=== PATIENT | male | born 1940 | race Caucasian/White ===

== ENCOUNTER 2022-12-23 13:29 | Emergency (ER) | payer OTHER ==
[2022-12-23 14:05] LABS: BASOPHILS PERCENT AUTO 0.4 % (0.0-1.0); EOSINOPHILS PERCENT AUTO 1.6 % (1.0-3.0); HEMATOCRIT 37.1 % (40.0-54.0); HEMOGLOBIN 12.2 g/dL (14.0-18.0); LYMPHOCYTES PERCENT AUTO 21.4 % (20.5-50.1); MEAN CORPUSCULAR HEMOGLOBIN 27.2 pg (27.0-34.0); MEAN CORPUSCULAR HGB CONC 32.9 g/dL (33.0-35.0); MEAN CORPUSCULAR VOLUME 82.8 fL (80-100); NEUTROPHILS PERCENT AUTO 66.6 % (42.2-75.2); PLATELET COUNT,PLT 292 10^3/uL (150-450); RED BLOOD CELL COUNT 4.48 10^6/uL (4.6-6.2); WHITE BLOOD CELL COUNT,WBC 7.9 10^3/uL (5.0-10.0)
[2022-12-23 14:24] LABS: ALBUMIN 2.8 g/dL (3.4-5.0); ANION GAP 11.5 mEq/L (7-13); BILIRUBIN TOTAL 0.4 mg/dL (0.2-1.0); BUN/CREATININE RATIO 13.5 (No establ ref range); CALCIUM 8.2 mg/dL (8.5-10.1); CREATININE 1.48 mg/dL (0.70-1.30); EST CRCL DRUG DOSING (CG) 43.69 mL/min; MAGNESIUM 2.2 mg/dL (1.8-2.4); POTASSIUM,K 4.5 mmol/L (3.5-5.1); PROTEIN TOTAL,TP 6.3 g/dL (6.4-8.2)
[2022-12-23 14:25] LABS: A/G RATIO 0.8
[2022-12-23] MEDS ORDERED: Sodium Chloride 0.9% 1,000 ML IV ONE (15:27)
[2022-12-23] MEDS ORDERED: Sodium Chloride 0.9% 10 ML Syringe FLUSH PRN (15:27)
== END 2022-12-23 17:05 ==
LOC: DL.ED 13:29
DX: S02.642A Fracture of ramus of left mandible, initial encounter for closed fracture (principal); S02.31XA Fracture of orbital floor, right side, initial encounter for closed fracture; S60.512A Abrasion of left hand, initial encounter; E86.0 Dehydration; B02.29 Other postherpetic nervous system involvement; I95.1 Orthostatic hypotension; T42.6X5A Adverse effect of other antiepileptic and sedative-hypnotic drugs, initial encounter; W06.XXXA Fall from bed, initial encounter
CPT/HCPCS: 36415; 70450; 70486; 72125; 80053; 83735; 85025; 93005; 93010; 96360; 99285; 99285-25; J7030

== ENCOUNTER 2024-12-11 13:52 | Emergency (ER) | payer OTHER ==
[2024-12-11] MEDS ORDERED: Sodium Chloride 0.9% 10 ML Syringe FLUSH PRN (13:58)
[2024-12-11 14:17] LABS: BASOPHILS PERCENT AUTO 0.3 % (0.0-1.0); EOSINOPHILS PERCENT AUTO 0.3 % (1.0-3.0); HEMOGLOBIN 12.8 g/dL (14.0-18.0); LYMPHOCYTES PERCENT AUTO 14.4 % (20.5-50.1); MEAN CORPUSCULAR HEMOGLOBIN 28.3 pg (27.0-34.0); MEAN CORPUSCULAR HGB CONC 32.8 g/dL (33.0-35.0); MEAN CORPUSCULAR VOLUME 86.1 fL (80-100); MONOCYTES PERCENT AUTO 10.7 % (2-8); NEUTROPHILS PERCENT AUTO 74.3 % (42.2-75.2); PLATELET COUNT,PLT 252 10^3/uL (150-450); RED BLOOD CELL COUNT 4.53 10^6/uL (4.6-6.2)
[2024-12-11] MEDS: Metoprolol Tartrate 5 MG/5 ML SDV IVPUSH ONE (14:26)
[2024-12-11] MEDS: Sodium Chloride 0.9% 1,000 ML IV ONE (14:35)
[2024-12-11 14:38] LABS: A/G RATIO 0.74; ALBUMIN 3.2 g/dL (3.4-5.0); ANION GAP 17.6 mEq/L (7-13); BILIRUBIN TOTAL 1.2 mg/dL (0.2-1.0); BUN/CREATININE RATIO 10.5 (No establ ref range); C-REACTIVE PROTEIN 18.39 ng/dL (<=0.50); CREATININE 1.24 mg/dL (0.70-1.30); EST CRCL DRUG DOSING (CG) 50.41 mL/min; POTASSIUM,K 3.6 mmol/L (3.5-5.1); PROTEIN TOTAL,TP 7.5 g/dL (6.4-8.2)
[2024-12-11 14:39] LABS: LACTIC ACID 2.6 mmol/L (0.4-2.0)
[2024-12-11] MEDS: Iopamidol 755 Mg/ML 100 ML Bottle IVPUSH ONE (14:59)
[2024-12-11] MEDS: cefTRIAXone 2 GM Vial IVPUSH ONE (16:00)
== END 2024-12-11 16:18 | disposition home or self-care (01) ==
LOC: DL.ED 13:52
DX: J18.9 Pneumonia, unspecified organism (principal); I10 Essential (primary) hypertension
CPT/HCPCS: 71045; 71275; 80053; 83605; 83735; 83880; 84484; 85025; 86140; 87040; 87428; 93005; 93010; 96374; 96375; 99284; 99285; J0696; J3490; J7030; Q9967

== ENCOUNTER 2024-12-17 14:26 | Emergency (ER) | payer OTHER ==
[2024-12-17 15:03] LABS: BASOPHILS PERCENT AUTO 0.7 % (0.0-1.0); EOSINOPHILS PERCENT AUTO 2.5 % (1.0-3.0); HEMATOCRIT 36.6 % (40.0-54.0); HEMOGLOBIN 11.6 g/dL (14.0-18.0); LYMPHOCYTES PERCENT AUTO 20.9 % (20.5-50.1); MEAN CORPUSCULAR HEMOGLOBIN 27.2 pg (27.0-34.0); MEAN CORPUSCULAR HGB CONC 31.7 g/dL (33.0-35.0); MEAN CORPUSCULAR VOLUME 85.7 fL (80-100); MONOCYTES PERCENT AUTO 9.6 % (2-8); NEUTROPHILS PERCENT AUTO 66.3 % (42.2-75.2); PLATELET COUNT,PLT 398 10^3/uL (150-450); RED BLOOD CELL COUNT 4.27 10^6/uL (4.6-6.2); WHITE BLOOD CELL COUNT,WBC 8.5 10^3/uL (5.0-10.0)
[2024-12-17 15:22] LABS: INR 1.1 (0.9-1.2); PROTHROMBIN TIME 11.5 SEC (9.0-12.0)
[2024-12-17 15:25] LABS: ALBUMIN 2.7 g/dL (3.4-5.0); ANION GAP 13.4 mEq/L (7-13); BILIRUBIN TOTAL 0.5 mg/dL (0.2-1.0); BUN/CREATININE RATIO 22.9 (No establ ref range); C-REACTIVE PROTEIN 6.4 ng/dL (<=0.50); CALCIUM 9.1 mg/dL (8.5-10.1); CREATININE 1.05 mg/dL (0.70-1.30); EST CRCL DRUG DOSING (CG) 61.3 mL/min; LACTIC ACID 1.8 mmol/L (0.4-2.0); POTASSIUM,K 3.4 mmol/L (3.5-5.1); PROTEIN TOTAL,TP 6.8 g/dL (6.4-8.2)
[2024-12-17 15:26] LABS: A/G RATIO 0.66
[2024-12-17] MEDS: methylPREDNISolone Sodium Succinate 125 MG/2 ML SDV IM ONE (15:27)
[2024-12-17] MEDS ORDERED: Sodium Chloride 0.9% 10 ML Syringe FLUSH PRN (16:16)
[2024-12-17] MEDS: Furosemide 40 MG/4 ML VIAL IV ONE (16:28)
== END 2024-12-17 17:24 | disposition home or self-care (01) ==
LOC: DL.ED 14:26
DX: J81.0 Acute pulmonary edema (principal); I10 Essential (primary) hypertension; Z87.01 Personal history of pneumonia (recurrent)
CPT/HCPCS: 36415; 71046; 80053; 83605; 83880; 84484; 85025; 85610; 85730; 86140; 93005; 93010; 96372; 96374; 99284; 99285; J1938; J2919

== ENCOUNTER 2025-03-08 12:02 | Emergency (ER) | payer OTHER ==
[2025-03-08 12:37] LABS: BASOPHILS PERCENT AUTO 0.2 % (0.0-1.0); EOSINOPHILS PERCENT AUTO 1.1 % (1.0-3.0); LYMPHOCYTES PERCENT AUTO 15.3 % (20.5-50.1); MONOCYTES PERCENT AUTO 6.7 % (2-8); NEUTROPHILS PERCENT AUTO 76.7 % (42.2-75.2); PLATELET COUNT,PLT 201 10^3/uL (150-450); RED BLOOD CELL COUNT 4.35 10^6/uL (4.6-6.2); WHITE BLOOD CELL COUNT,WBC 8.4 10^3/uL (5.0-10.0)
[2025-03-08] MEDS: Magnesium Sulfate 2 GM/50 mL 2 GM in Premix Bag 1 BAG IV SCH (12:49)
[2025-03-08 12:53] LABS: O2 DELIVERY DEVICE ROOM AIR
[2025-03-08 12:59] LABS: BASE EXCESS VENOUS -9 mmol/L ((-2)-(+3)); BICARBONATE,VENOUS 16 mmol/L (22-29); O2 SATURATION VENOUS 74 % (60-80); PCO2 VENOUS 24 mmHg (41-51); PH,VENOUS 7.42 pH (7.32-7.43); PO2 VENOUS 38 mmHg (35-42)
[2025-03-08 13:06] LABS: A/G RATIO 0.74; ALANINE AMINOTRANSFERASE,ALT 14.0 U/L (16-63); ASPARTATE AMNIOTRANSFERASE,AST 12.0 U/L (15-37); BILIRUBIN TOTAL 1.0 mg/dL (0.2-1.0); BLOOD UREA NITROGEN,BUN 17.0 mg/dL (7-18); CARBON DIOXIDE,CO2 25.0 mmol/L (21-32); CHLORIDE,CL 109.0 mmol/L (98-107); CREATININE 1.28 mg/dL (0.70-1.30); EST CRCL DRUG DOSING (CG) 47.99 mL/min; ESTIMATED GFR 56.0 mL/min (>=60); GLUCOSE RANDOM 126.0 mg/dL (70-99); POTASSIUM,K 4.0 mmol/L (3.5-5.1); PROTEIN TOTAL,TP 6.6 g/dL (6.4-8.2); SODIUM,NA 142.0 mmol/L (136-145)
[2025-03-08 13:07] LABS: LACTIC ACID 1.1 mmol/L (0.4-2.0)
[2025-03-08] MEDS: Lactated Ringers 1,000 ML IV SCH (14:09)
== END 2025-03-08 16:19 | disposition home or self-care (01) ==
LOC: DL.ED 12:02
DX: R05.2 Subacute cough (principal); Z87.01 Personal history of pneumonia (recurrent); K21.9 Gastro-esophageal reflux disease without esophagitis; Z87.891 Personal history of nicotine dependence
CPT/HCPCS: 36415; 71045; 80053; 82803; 83605; 83735; 83880; 84484; 85025; 85379; 93005; 96365; 96366; 99285; J3475; J7120

== ENCOUNTER 2025-03-13 16:57 | Emergency (ER) | payer OTHER ==
[2025-03-13] MEDS ORDERED: Sodium Chloride 0.9% 10 ML Syringe FLUSH PRN (18:05)
[2025-03-13 18:13] LABS: BASOPHILS PERCENT AUTO 0.2 % (0.0-1.0); EOSINOPHILS PERCENT AUTO 0.9 % (1.0-3.0); LYMPHOCYTES PERCENT AUTO 13.4 % (20.5-50.1); MONOCYTES PERCENT AUTO 9.6 % (2-8); NEUTROPHILS PERCENT AUTO 75.9 % (42.2-75.2); PLATELET COUNT,PLT 319 10^3/uL (150-450); RED BLOOD CELL COUNT 4.33 10^6/uL (4.6-6.2); WHITE BLOOD CELL COUNT,WBC 8.9 10^3/uL (5.0-10.0)
[2025-03-13 18:36] LABS: LACTIC ACID 1.3 mmol/L (0.4-2.0)
[2025-03-13 18:39] LABS: INR 1.1 (0.9-1.2); PTT,PARTIAL THROMBOPLSTIN TIME 29.3 SEC (22.0-34.0)
[2025-03-13 18:40] LABS: D-DIMER QUANTITATIVE 1420.0 ng/mL (0-400)
[2025-03-13 18:43] LABS: A/G RATIO 0.5; ALANINE AMINOTRANSFERASE,ALT 39.0 U/L (16-63); ASPARTATE AMNIOTRANSFERASE,AST 41.0 U/L (15-37); BILIRUBIN TOTAL 0.5 mg/dL (0.2-1.0); BLOOD UREA NITROGEN,BUN 45.0 mg/dL (7-18); CARBON DIOXIDE,CO2 24.0 mmol/L (21-32); CHLORIDE,CL 105.0 mmol/L (98-107); CREATININE 1.55 mg/dL (0.70-1.30); EST CRCL DRUG DOSING (CG) 39.63 mL/min; ESTIMATED GFR 44.0 mL/min (>=60); GLUCOSE RANDOM 116.0 mg/dL (70-99); POTASSIUM,K 3.7 mmol/L (3.5-5.1); PROTEIN TOTAL,TP 6.9 g/dL (6.4-8.2); SODIUM,NA 140.0 mmol/L (136-145)
[2025-03-13] MEDS: Iopamidol 755 Mg/ML 100 ML Bottle IVPUSH ONE (19:00)
== END 2025-03-13 21:30 | disposition home or self-care (01) ==
LOC: DL.ED 16:57
DX: J18.9 Pneumonia, unspecified organism (principal); I50.9 Heart failure, unspecified
CPT/HCPCS: 36415; 71046; 71275; 80053; 83605; 83880; 84484; 85025; 85379; 85610; 85730; 93005; 96374; 99285; J0696; Q0144; Q9967; A9270-GY

== ENCOUNTER 2025-03-20 16:44 | Emergency (ER) | payer OTHER ==
[2025-03-20 17:28] LABS: PLATELET COUNT,PLT 534 10^3/uL (150-450); RED BLOOD CELL COUNT 4.42 10^6/uL (4.6-6.2); WHITE BLOOD CELL COUNT,WBC 12.9 10^3/uL (5.0-10.0)
[2025-03-20 17:30] LABS: BASOPHILS PERCENT AUTO 0.6 % (0.0-1.0); EOSINOPHILS PERCENT AUTO 0.9 % (1.0-3.0); LYMPHOCYTES PERCENT AUTO 12.5 % (20.5-50.1); MONOCYTES PERCENT AUTO 10.9 % (2-8); NEUTROPHILS PERCENT AUTO 75.1 % (42.2-75.2)
[2025-03-20 17:45] LABS: ALANINE AMINOTRANSFERASE,ALT 28.0 U/L (16-63); ASPARTATE AMNIOTRANSFERASE,AST 12.0 U/L (15-37); BILIRUBIN TOTAL 0.6 mg/dL (0.2-1.0); BLOOD UREA NITROGEN,BUN 26.0 mg/dL (7-18); CARBON DIOXIDE,CO2 24.0 mmol/L (21-32); CHLORIDE,CL 101.0 mmol/L (98-107); CREATININE 1.74 mg/dL (0.70-1.30); EST CRCL DRUG DOSING (CG) 35.08 mL/min; GLUCOSE RANDOM 142.0 mg/dL (70-99); POTASSIUM,K 3.7 mmol/L (3.5-5.1); PROTEIN TOTAL,TP 7.3 g/dL (6.4-8.2); SODIUM,NA 136.0 mmol/L (136-145)
[2025-03-20 17:47] LABS: A/G RATIO 0.49; B-TYPE NATRIURETIC PEPTIDE,BNP 99.0 pg/ml (0-100); ESTIMATED GFR 38.0 mL/min (>=60)
[2025-03-20 18:36] LABS: LACTIC ACID 0.9 mmol/L (0.4-2.0)
[2025-03-20 18:36] LABS: BAND PERCENT MAN 2 %; LYMPHOCYTES PERCENT MAN 15 % (20-50); MONOCYTES PERCENT MAN 8 % (2-8); SEG NEUTROPHILS PERCENT MAN 75 % (42-75)
[2025-03-20 19:33] LABS: APPEARANCE,URINE CLEAR (CLEAR); GLUCOSE,URINE 500 (NEGATIVE); OCCULT BLOOD,URINE TRACE-INTACT (NEGATIVE)
[2025-03-20 19:52] LABS: EPITHELIAL CELLS,URINE FEW /HPF (NOT SEEN)
== END 2025-03-20 19:44 | disposition home or self-care (01) ==
LOC: DL.ED 16:44
DX: J18.9 Pneumonia, unspecified organism (principal); B99.9 Unspecified infectious disease; I10 Essential (primary) hypertension
CPT/HCPCS: 36415; 71045; 72125; 73130; 80053; 81001; 83605; 83880; 84145; 84484; 84550; 85025; 86140; 93005; 96361; 96374; 99285; A9270; J0696; J7040